=== PATIENT | female | born 1955 | race Caucasian/White ===

== ENCOUNTER 2016-07-30 14:07 | Emergency (ER) | payer BC ==
[2016-07-30] MEDS ORDERED: IBUPROFEN 400 MG TABLET (FP) PO ONE ×2 (14:11→14:26)
--- NOTE | 2016-07-30 14:11 | PDOC ---
History of Present Illness - General Chief Complaint: Back Pain Stated Complaint: BACK PAIN Time Seen by Provider: 07/30/16 14:11 History Source: Patient Exam Limitations: No Limitations - History of Present Illness Initial Comments: 07/30/16 14:11 The patient is a 60-year-old female with no significant past medical history, who presents to the emergency department with approximately 2 weeks of left sided low back pain. The pain is a mild to moderate dull ache. It is worsened by change in position, by increased physical activity or by prolonged sitting. The pain does not radiate. She denies lower extremity weakness or paresthesias. She denies bladder or bowel incontinence or retention. She denies fever. She denies rash. She denies urinary frequency/urgency/hesitancy/dysuria/hematuria. She states that she has taken Motrin on occasion and it has usually relieved her pain completely. She denies trauma. Past History - Past Medical History Allergies/Adverse Reactions: Allergies Allergy/AdvReac Type Severity Reaction Status Date / Time No Known Allergies Allergy Verified 07/30/16 14:08 Home Medications: Ambulatory Orders Naproxen [Naprosyn] 500 mg PO BID #20 tablet 07/30/16 Naproxen [Naprosyn] 500 mg PO BID PRN #20 tablet 07/30/16 Hypercholesterolemia: Yes - Psycho/Social/Smoking Cessation Hx Anxiety: No Suicidal Ideation: No Smoking History: Never smoked Hx Alcohol Use: No Review of Systems - Review of Systems Comments:: 07/30/16 14:12 CONSTITUTIONAL: Absent: fever, chills, fatigue EYES: Absent: visual changes ENT: Absent: ear pain, sore throat CARDIOVASCULAR: Absent: chest pain, palpitations, loss of consciousness RESPIRATORY: Absent: cough, SOB GI: Absent: abdominal pain, nausea, vomiting, constipation, diarrhea GENITOURINARY: Absent: dysuria, frequency, hematuria MUSKULOSKELETAL: Present: See history of present illness SKIN: Absent: rash NEURO: Absent: headache, dizziness *Physical Exam - Physical Exam Comments: 07/30/16 14:13 GENERAL: Well-appearing, well-nourished. No apparent distress. HEENT: Normocephalic, atraumatic. PERRL, EOM intact. CARDIOVASCULAR: Normal S1, S2. Regular rate and rhythm. PULMONARY: Clear to auscultation bilaterally. ABDOMEN: Soft, non-distended, non-tender. EXTREMITIES: Normal ROM in all four extremities. No gross deformities. She does have some tenderness to palpation in the left gluteus radha area as well as the left lower lumbar paraspinal area. There is no bony tenderness. SKIN: Warm, dry. No rash NEUROLOGICAL: No focal neurological deficits. Medical Decision Making - Medical Decision Making 07/30/16 14:13 She is well-appearing and in no acute distress She does not have features suggestive of spinal cord compression or cauda equina syndrome I suspect musculoskeletal pain, likely sciatica Will obtain plain films of the hip and pelvis to rule out fracture, degenerative joint disease 07/30/16 15:26 X-ray emergency Department interpretation: No evidence of acute pathology Clinical impression: Musculoskeletal pain, likely sciatica I discussed the physical exam findings, ancillary test results and final diagnoses with the patient. I answered all of the patient's questions. The patient was satisfied with the care received and felt comfortable with the discharge plan and treatment plan. The patient will call their primary care physician within 24 hours to arrange follow-up and will return to the Emergency Department with any new, persistent or worsening symptoms. *DC/Admit/Observation/Transfer Diagnosis at time of Disposition: Sciatica of left side - Discharge Dispostion Disposition: HOME Condition at time of disposition: Improved - Prescriptions Prescriptions: Naproxen [Naprosyn] 500 mg PO BID PRN #20 tablet PRN Reason: Pain Naproxen [Naprosyn] 500 mg PO BID #20 tablet - Referrals Referrals: Tarik Baer MD [Staff Physician] - - Patient Instructions Printed Discharge Instructions: DI for Back Pain With Sciatica Additional Instructions: Return to the emergency department immediately with ANY new, persistent or worsening symptoms. You MUST call and follow up with your doctor tomorrow. Please make sure your doctor reviews the results of your emergency department evaluation.
[2016-07-30 14:20] VITALS: BP 116/80; PULSE 66; TEMP 97.9; BMI 23.1
== END 2016-07-30 15:36 | disposition home or self-care (01) ==
LOC: FER 14:07
DX: M54.32 Sciatica, left side (principal)
CPT/HCPCS: 73523-TC; 99282-25

== ENCOUNTER 2019-10-21 09:30 | Emergency (ER) | payer OTHER ==
--- NOTE | 2019-10-21 09:55 | TELE ---
HPI Do you have fever,cough or shortness of breath?: No - General Reason For Visit: COVID19 TESTING History Source: Patient Exam Limitations: No Limitations - History of Present Illness 10/21/19 09:50 Patient is a 63-year-old female who participated in a virtual urgent care visit for request for COVID testing. She states her daughter was recently tested positive for and she would like to get tested. She denies any fevers or chills. She denies any cough or shortness of breath. She states her daughter was recently tested and found to be positive but has been quarantining in her own bedroom. The daughter has a separate bathroom upstairs and away from her mother. The patient denies any recent travel outside or within the [place] within the last 14 days. She has a past medical history of hyperlipidemia for which she is on medication. She denies any allergies to medications. Past History - Medical History Allergies/Adverse Reactions: Allergies Allergy/AdvReac Type Severity Reaction Status Date / Time No Known Allergies Allergy Verified 07/30/16 14:08 Home Medications: Ambulatory Orders Glucosa Calero 2Kcl/Chondroitin Calero [Glucosamine & Chondroitin Cap] 1 each PO DAILY 08/25/17 Multivitamin [One Daily] 1 each PO DAILY 08/25/17 Turmeric/Turmeric Ext/Pepr Ext [Turmeric Complex 500 mg Cap] 1 each PO DAILY 08/25/17 Pravastatin Sodium 20 mg PO HS 08/28/17 Anemia: No Asthma: No Cancer: No Cardiac Disorders: No CVA: No COPD: No CHF: No Dementia: No Diabetes: No GI Disorders: No Disorders: No HTN: No Hypercholesterolemia: Yes Liver Disease: No Seizures: No Thyroid Disease: No - Surgical History Abdominal Surgery: No Appendectomy: No Cardiac Surgery: No Cholecystectomy: No Lung Surgery: No Neurologic Surgery: No Orthopedic Surgery: Yes (Right Knee Arthroscopy) - Psycho-Social/Smoking History Smoking History: Never smoked Have you smoked in the past 12 months: No Review of Systems - Review of Systems Comments:: 10/21/19 09:51 - Review of Systems Able to Perform ROS?: Yes Constitutional: No: Fever, Chills, Loss of Appetite, Night Sweats, Weakness; telehealth visit for COVID testing HEENTM: No: Eye Pain, Vision changes, Ear Pain, Throat Pain, Throat Swelling, Mouth Pain, Difficulty Swallowing Respiratory: No: Cough, Shortness of Breath, Wheezing, Sputum Production Cardiac (ROS): No: Chest Pain, Chest Tightness, Palpitations, Irregular Heart Beat, Edema ABD/GI: No: Nausea, Vomiting, Abdominal Pain, Diarrhea : No Dysuria, No Hematuria, No Frequency, No Urgency Musculoskeletal: No: Muscle Pain, Back Pain, Joint Pain, Muscle Weakness, Neck Pain Integumentary: No: Lesions, Rash Neurological: No: Headache, Numbness, Tingling, Weakness, Speech Difficulties *Physical Exam - Physical Exam 10/21/19 09:52 - Physical Exam General Appearance: Nourished, Appropriately Dressed, No Distress HEENT: EOMI, Normal Voice, Hearing Grossly Normal Neck: No Decreased range of motion Respiratory/Chest: Normal chest excursion appreciated, No Accessory Muscle Use Gastrointestinal/Abdominal: No distention Musculoskeletal: Normal Inspection Integumentary: Normal Color, Dry. No Rash Neurologic: beef trimmer II-XII NML intact, Fully Oriented, Alert, Normal Mood/Affect, Normal Response - Medical Decision Making 10/21/19 09:52 Assessment: Patient is a 63-year-old female who participated in a virtual urgent care visit for COVID testing. Her daughter recently tested positive for the coronavirus and is currently quarantining in the upstairs of her house. Plan: -COVID testing ordered -Pt to proceed to the [facility] for covid testing -Covid counseling performed, isolation precautions givne -Pt understands and agrees with treatment and plan Discharge Diagnosis at time of Disposition: Counseled about COVID-19 virus infection - Referrals Follow-up Referral(s): Jeffrey Jones MD [Primary Care Provider] - - Patient Instructions Discharge Instructions: [facility]Coronavirus Instructions, [facility] COVID-19 Isolation Protocol Additional Discharge Instructions: You were seen for your cough and possible Coronavirus (COVID-19) Take Tylenol 650 mg every 6 hours as needed for fever or pain. You may take Robitussin or other [id number] cough syrup. Follow the dosing instructions on the bottle. Warm tea, honey, and salt water gargles may help your symptoms. Please take precautions and self quarantine for 2 weeks and follow-up with your primary care doctor and the Department of Health. Return to the nearest emergency department for shortness of breath, difficulty breathing, chest pain, or if you have any changes in your symptoms. - Discharge Disposition: HOME Condition at time of Disposition: Stable
== END 2019-10-21 09:57 | disposition home or self-care (01) ==
LOC: JVIRT 09:30
DX: Z20.828 Contact with and (suspected) exposure to other viral communicable diseases (principal)
CPT/HCPCS: Q3014-GT; U0003

== ENCOUNTER → 2019-11-25 | Day surgery (SDC) | payer OTHER ==
--- NOTE | 2019-11-28 15:17 | PATH ---
Cytology Non-Gynecological Report Patient Name: [facility]. Rec. #: [id number] /Age/Gender: 1955 (Age: 63) / F Account: [id number] Location: RADIOLOGY INTER Taken: 11/25/2019 Received: 11/25/2019 Reported: 11/28/2019 Physicians: Natasha Barriga M.D. Specimen(s) Received THYROID FNA Clinical History Right thyroid nodule 1.66 x 1.05 x 1.45 cm Final Diagnosis THYROID, RIGHT, FINE NEEDLE ASPIRATION: SATISFACTORY FOR EVALUATION BETHESDA CLASS II: BENIGN SMALL FOLLICULAR CELLS AND COLLOID PRESENT, CONSISTENT WITH A BENIGN FOLLICULAR NODULE. Electronically Signed Sav Hatch M.D. Gross Description Received are eight direct smears, four of which are air-dried and Diff-Quik stained, and four of which are alcohol fixed and Pap stained. Also received is 20 ml of bloody formalin from which one cellblock is prepared.
== END | disposition home or self-care (01) ==
LOC: JRADIR 11:02
PROVIDERS: ATTEND Specialist
PROC: 0G9K3ZX Drainage of Thyroid Gland, Percutaneous Approach, Diagnostic (ICD-10-PCS; principal; 2019-11-25)
DX: E04.1 Nontoxic single thyroid nodule (principal)
CPT/HCPCS: 76942; 88173; 88305-TC

== ENCOUNTER 2020-03-31 12:22 | Emergency (ER) | payer OTHER | END 2020-03-31 14:16 | disposition home or self-care (01) | LOC: JVIRT 12:22 | DX: Z20.822 Contact with and (suspected) exposure to COVID-19 (principal) | CPT/HCPCS: C9803; G2012-GT; U0003 ==

== ENCOUNTER 2020-05-22 10:30 | Emergency (ER) | payer OTHER | END 2020-05-22 11:46 | disposition home or self-care (01) | LOC: JVIRT 10:30 | DX: Z11.52 Encounter for screening for COVID-19 (principal) | CPT/HCPCS: C9803; G2251-GT; U0003 ==

== ENCOUNTER 2022-01-26 13:05 | Day surgery (SDC) | payer OTHER ==
[2022-01-21 12:51] VITALS: BMI 24.0
[2022-01-26] MEDS ORDERED: ROPIVACAINE HCL 0.5% 30ML VIAL ONE (14:33)
[2022-01-26] MEDS ORDERED: MIDAZOLAM HCL 2 MG/2 ML SINGLE DOSE VIAL ONE (14:33)
[2022-01-26] MEDS ORDERED: DEXAMETHASONE SOD PHOSPHATE/PF 10 MG/ML SDV ONE (14:33)
[2022-01-26] MEDS ORDERED: PROPOFOL 20 ML ONE (14:48)
[2022-01-26] MEDS ORDERED: SUCCINYLCHOLINE CHLORIDE 200 MG/10 ML SYRINGE ONE (14:48)
[2022-01-26] MEDS ORDERED: ceFAZolin SODIUM 1 GM VIAL ONE (15:01)
[2022-01-26] MEDS ORDERED: KETOROLAC TROMETHAMINE 30 MG/1 ML VIAL ONE (15:01)
[2022-01-26] MEDS ORDERED: DEXAMETHASONE SOD PHOSPHATE 4 MG/1 ML VIAL ONE (15:01)
[2022-01-26] MEDS ORDERED: ONDANSETRON 4 MG/2 ML VIAL ONE (15:01)
[2022-01-26] MEDS ORDERED: oxyCODONE HCL 5 MG TABLET PO PRN ×2 (16:04)
[2022-01-26] MEDS ORDERED: ONDANSETRON 4 MG/2 ML VIAL IVPUSH PRN (16:04)
[2022-01-26] MEDS ORDERED: ACETAMINOPHEN 325 MG TABLET (FP) PO PRN (16:05)
[2022-01-26 17:05] VITALS: PULSE 58; RESP 19
[2022-01-26 17:07] VITALS: BP 108/70; TEMP 97.2
== END 2022-01-26 17:06 | disposition home or self-care (01) ==
LOC: FASU 13:05
PROVIDERS: ATTEND Orthopaedic Surgery Hand Surgery
PROC: 0LN50ZZ Release Right Lower Arm and Wrist Tendon, Open Approach (ICD-10-PCS; 2022-01-26)
PROC: 0PSH04Z Reposition Right Radius with Internal Fixation Device, Open Approach (ICD-10-PCS; principal; 2022-01-26 15:11)
DX: S52.571A Other intraarticular fracture of lower end of right radius, initial encounter for closed fracture (principal); X58.XXXA Exposure to other specified factors, initial encounter; Y93.9 Activity, unspecified; Y92.9 Unspecified place or not applicable
CPT/HCPCS: 25290; 25609; C1713; 73110-TC-RT-FY; 73130-TC-RT-FY